=== PATIENT | female | born 1945 | race Caucasian/White ===

== ENCOUNTER → 2016-12-13 | Outpatient (CLI) | payer MEDICARE, BC | LOC: MC.RAD 09:50 | DX: Z12.31 Encounter for screening mammogram for malignant neoplasm of breast (principal) ==

== ENCOUNTER → 2017-12-26 | Outpatient (CLI) | payer MEDICARE, BC | LOC: MC.RAD 10:16 | DX: Z12.31 Encounter for screening mammogram for malignant neoplasm of breast (principal) ==

== ENCOUNTER 2018-10-06 15:44 | Outpatient (CLI) | payer MEDICARE, BC ==
[~2018-10-06] VITALS: Ht 152.4 cm; Wt 68.0 kg
[2018-10-06 15:57] VITALS: BP 150/80; PULSE 90; TEMP 98.5
[2018-10-06] MEDS ORDERED: SYSTANE 0.4%-0.1 SOL OP (16:01)
[2018-10-06] MEDS ORDERED: SYNTHROID0.088 MG/T PO (16:27)
[2018-10-06] MEDS ORDERED: B-121000 MCG PO (16:28)
[2018-10-06] MEDS ORDERED: KLOR-CON M1010 MEQ PO (16:28)
[2018-10-06] MEDS ORDERED: PHARMASSURE ZIN50 MG PO (16:29)
[2018-10-06] MEDS ORDERED: MULTIPLE VITAMI1 CAP PO (16:29)
[2018-10-06] MEDS ORDERED: CALCIUM 600 PLU1 TAB PO (16:29)
[2018-10-06] MEDS ORDERED: METROLOTION 5959 ML TP (16:30)
[2018-10-06] MEDS ORDERED: ERGOCALCIFER50000 IU PO (16:31)
== END 2018-10-06 16:31 | disposition home or self-care (01) ==
LOC: EUO 15:44
DX: M81.0 Age-related osteoporosis without current pathological fracture (principal)
CPT/HCPCS: J0897

== ENCOUNTER → 2019-01-07 | Outpatient (CLI) | payer MEDICARE, BC ==
[~2019-01-07] MED LIST: B-121000 MCG PO; CALCIUM 600 PLU1 TAB PO; ERGOCALCIFER50000 IU PO; KLOR-CON M1010 MEQ PO; METROLOTION 5959 ML TP; MULTIPLE VITAMI1 CAP PO; PHARMASSURE ZIN50 MG PO; SYNTHROID0.088 MG/T PO; SYSTANE 0.4%-0.1 SOL OP
== END ==
LOC: MC.RAD 13:58
DX: Z12.31 Encounter for screening mammogram for malignant neoplasm of breast (principal)

== ENCOUNTER → 2020-01-11 | Outpatient (CLI) | payer MEDICARE, BC | LOC: MC.RAD 14:34 | DX: Z12.31 Encounter for screening mammogram for malignant neoplasm of breast (principal) ==

== ENCOUNTER → 2021-01-24 | Outpatient (CLI) | payer MEDICARE, BC | LOC: MC.RAD 14:27 | DX: Z12.31 Encounter for screening mammogram for malignant neoplasm of breast (principal) ==

== ENCOUNTER → 2023-03-20 | Outpatient (CLI) | payer MEDICARE, BC | LOC: CANSCHCLI → MC.RAD 08:53 | DX: Z12.31 Encounter for screening mammogram for malignant neoplasm of breast (principal) ==

== ENCOUNTER 2023-05-23 09:56 | Outpatient (CLI) | payer MEDICARE, BC ==
[~2023-05-23] VITALS: Ht 152.4 cm; Wt 67.4 kg
[2023-05-23 10:36] VITALS: BP 150/64; PULSE 91; TEMP 97.6
== END 2023-05-23 10:36 ==
LOC: EUO 09:56
DX: M81.0 Age-related osteoporosis without current pathological fracture (principal)
CPT/HCPCS: J0897